=== PATIENT | female | born 1955 | race Caucasian/White ===

== ENCOUNTER 2017-02-02 07:10 | Emergency (ER) | payer OTHER ==
[2017-02-02 07:27] VITALS: BP 114/76
--- NOTE | 2017-02-02 07:37 | UC ---
Throat Pain/Nasal Shaji HPI - HPI Summary HPI Summary: [address], PAIN WITH SWALLOWING, [place] AND BODY ACHES. HAS HAD EAR PAIN FOR THE PAST 2 DAYS. NO FEVER, COUGH, N/V/D. PT NO LONGER HAS TONSILS. - History of Current Complaint Chief Complaint: UCRespiratory Stated Complaint: SORE THROAT Time Seen by Provider: 02/02/17 07:17 Hx Obtained From: Patient Hx Last Menstrual Period: menapause Onset/Duration: Gradual Onset, Lasting Days, Still Present Severity: Moderate Pain Intensity: 5 Pain Scale Used: 0-10 Numeric Cough: None Associated Signs & Symptoms: Negative: Wheezing, Hoarseness, Sinus Discomfort, Nasal Discharge, Fever, Vomiting, Rash - Allergies/Home Medications Allergies/Adverse Reactions: Allergies Allergy/AdvReac Type Severity Reaction Status Date / Time Aspirin Allergy Unknown Verified 05/15/16 09:39 Reaction Details Contrast Allergy Unknown Uncoded 05/15/16 09:39 Reaction Details PMH/Surg Hx/FS Hx/Imm Hx Endocrine History Of: Denies: Diabetes, Thyroid Disease Respiratory History Of: Reports: Asthma - history of when living in [place] Denies: COPD - Surgical History Surgical History: Yes Surgery Procedure, Year, and Place: tonsilectomy 15 yrs ago - Family History Known Family History: Positive: Hypertension, Diabetes - Social History Alcohol Use: Weekly Alcohol Amount: couple times per week Substance Use Type: None Smoking Status (MU): Never Smoked Tobacco Review of Systems Constitutional: Negative ENT: Sore Throat, Ear Ache Respiratory: Negative Cardiovascular: Negative Gastrointestinal: Negative Musculoskeletal: Myalgia Neurological: Headache All Other Systems Reviewed And Are Negative: Yes Physical Exam Triage Information Reviewed: Yes Appearance: Well-Appearing, No Pain Distress, Well-Nourished Vital Signs: Initial Vital Signs Temp 97.3 F 02/02/17 07:18 Pulse 75 02/02/17 07:18 Resp 18 02/02/17 07:18 BP 114/76 02/02/17 07:18 Pulse Ox 97 02/02/17 07:18 Vital Signs Reviewed: Yes Eyes: Positive: Conjunctiva Clear ENT: Positive: Hearing grossly normal, Pharyngeal erythema, TMs normal, Other: - FLUID BEHIND RIGHT TM. NO TONSILS. Negative: Muffled/hoarse voice Neck: Positive: Supple, Nontender, No Lymphadenopathy Respiratory Exam: Normal Cardiovascular Exam: Normal Abdomen Description: Positive: Soft Musculoskeletal: Positive: No Edema Neurological: Positive: Alert Psychological: Positive: Age Appropriate Behavior Skin: Negative: rashes Throat Pain/Nasal Course/Dx - Differential Dx/Diagnosis Provider Diagnoses: 1. ACUTE PHARYNGITIS. 2. RIGHT SEROUS OTITIS Discharge - Discharge Plan Condition: Stable Disposition: HOME Prescriptions: Amoxicillin CAP* [Amoxicillin 500 MG CAP*] 1,000 mg PO Q12H #40 cap Patient Education Materials: Pharyngitis (ED), Serous Otitis Media (ED) Referrals: Lissette Alvarado MD [Primary Care Provider] - If Needed Additional Instructions: YOUR SYMPTOMS ARE LIKELY VIRALLY MEDIATED AND WILL IMPROVE ON THEIR OWN WITH TIME. OTC IBUPROFEN AND OTC CHLORASEPTIC OR CEPACOL LOZENGES FOR SORE THROAT NEEDED IF YOU FEEL YOU ARE GETTING WORSE OVER THE NEXT SEVERAL DAYS GO AHEAD AND FILL RX FOR ANTIBIOTIC. IF YOU START IT TAKE IT FOR THE FULL 10 DAYS TO PREVENT DEVELOPING RESISTANCE TO THE MEDICATION.
== END 2017-02-02 07:45 | disposition home or self-care (01) ==
LOC: UCEAST 07:10
DX: J02.9 Acute pharyngitis, unspecified (principal); H65.91 Unspecified nonsuppurative otitis media, right ear; Z88.6 Allergy status to analgesic agent; Z91.041 Radiographic dye allergy status
CPT/HCPCS: 99211; G0463